=== PATIENT | male | born 1975 | race Caucasian/White ===

== ENCOUNTER 2017-05-21 22:42 | Emergency (ER) | payer MEDICARE | END 2017-05-22 00:25 | disposition home or self-care (01) | LOC: ER1 22:42 | DX: I82.4Z1 Acute embolism and thrombosis of unspecified deep veins of right distal lower extremity (principal); Z88.5 Allergy status to narcotic agent | CPT/HCPCS: 96372; 99283; J1650 ==

== ENCOUNTER → 2017-05-22 | Outpatient (CLI) | payer MEDICARE | LOC: US 16:30 | DX: M79.604 Pain in right leg (principal); R60.0 Localized edema | CPT/HCPCS: 93971 ==

== ENCOUNTER → 2022-04-17 | Outpatient (CLI) | payer SELFPAY ==
[~2022-04-17] MED LIST: DELSYM30 MG/5 ML PO; ELIMITE 5% CREA60 GM TOP; EXPECTORANT200 MG PO; OMNICEF 300 MG300 MG PO; PREDNISONE 50 M50 MG PO; PROVENTIL HFA6.7 GM INH; ZOFRAN4 MG PO
== END ==
LOC: KOH-I 12:16
DX: M79.641 Pain in right hand (principal)
CPT/HCPCS: 73120